=== PATIENT | female | born 2000 | race Caucasian/White ===

== ENCOUNTER → 2023-09-10 10:33 | Outpatient (REF) | payer BC, SELFPAY ==
[2023-09-19 22:22] LABS: Chlamydia trachomatis,ThinPrep Negative (Negative); Neisseria gonorrhoeae,ThinPrep Negative (Negative); Specimen Source Cervical
[2023-09-20 05:54] LABS: HPV, High Risk Detected; HPV, High Risk Source Cervical
[2023-09-21 08:21] LABS: HPV Genotype 16 Not Detected; HPV Genotype 18/45 by TMA Not Detected; HPV Genotype Source Cervical
== END ==
LOC: CPAP 10:33
PROVIDERS: ATTENDING PHYSICIAN Obstetrics & Gynecology
DX: Z01.419 Encounter for gynecological examination (general) (routine) without abnormal findings (principal); Z12.4 Encounter for screening for malignant neoplasm of cervix; Z11.3 Encounter for screening for infections with a predominantly sexual mode of transmission
CPT/HCPCS: 87491; 87591; 87624; 87625; G0123

== ENCOUNTER → 2023-09-17 09:57 | Outpatient (REF) | payer BC, SELFPAY ==
[2023-09-17 13:05] LABS: HDL Cholesterol 56 mg/dl; LDL Cholesterol, Calculated 29 mg/dl; Total Cholesterol 153 mg/dl (50-199); Triglyceride 343 mg/dl (10-149); Very Low Density Lipoprotein 68 mg/dl (0-30)
== END ==
LOC: HWLAB 09:57
PROVIDERS: ATTENDING PHYSICIAN Physician Assistant Medical
DX: E78.9 Disorder of lipoprotein metabolism, unspecified (principal)
CPT/HCPCS: 36415; 80061

== ENCOUNTER → 2024-02-10 09:56 | Outpatient (REF) | payer BC, SELFPAY ==
[2024-02-12 15:59] LABS: Quantiferon Mitogen minus NIL 9.96 IU/mL; Quantiferon NIL 0.04 IU/mL; Quantiferon TB Gold Plus Negative (Negative)
== END ==
LOC: HWLAB 09:56
PROVIDERS: ATTENDING PHYSICIAN Physician Assistant Medical
DX: Z11.1 Encounter for screening for respiratory tuberculosis (principal)
CPT/HCPCS: 36415; 86480

== ENCOUNTER → 2024-06-10 11:12 | Outpatient (REF) | payer BC, SELFPAY ==
[2024-06-10 13:12] LABS: Hepatitis B Surface Antibody Positive
[2024-06-12 08:55] LABS: Quantiferon Mitogen minus NIL 9.99 IU/mL; Quantiferon NIL 0.01 IU/mL; Quantiferon Plus TB1 minus NIL 0.03 IU/mL (<=0.34); Quantiferon Plus TB2 minus NIL 0.04 IU/mL (<=0.34); Quantiferon TB Gold Plus Negative (Negative)
== END ==
LOC: REG 11:12
PROVIDERS: ATTENDING PHYSICIAN Nurse Practitioner Family; FAMILY PHYSICIAN Physician Assistant Medical
DX: Z23 Encounter for immunization (principal)
CPT/HCPCS: 36415; 86480; 86706

== ENCOUNTER → 2024-08-25 08:42 | Outpatient (REF) | payer BC, SELFPAY ==
[2024-08-25 13:09] LABS: % Basophils 0.4 % (0-2); % Eosinophils 0.5 % (0-6); % Immature Granulocytes 0.4 % (0-0.5); % Monocytes 6.9 % (1.7-9.3); % Neutrophils 65.8 % (42.2-75.2); Absolute Monocytes 0.5 10^3/uL (0.1-0.6); Hematocrit 42.5 % (37.0-47.0); Hemoglobin 13.7 g/dL (12.0-16.0); Mean Corp Hgb Conc. 32.2 g/dL (33.0-37.0); Mean Corpuscular Hgb 30.6 pg (27.0-31.0); Mean Corpuscular Volume 94.9 fL (81.0-99.0); Mean Platelet Volume 10.2 fL (7.4-10.4); Nucleated Red Blood Cells % 0 %; Platelet Count 351 10^3/uL (130-400); Red Blood Cell Count 4.48 10^6/uL (4.20-5.40); Red Cell Dist. Width 11.9 % (11.5-14.5); White Blood Cell Count 7.5 10^3/uL (4.8-10.8)
[2024-08-25 13:16] LABS: ALT (SGPT) 13 U/L (0-35); AST (SGOT) 26 U/L (14-36); Albumin 4.6 g/dl (3.5-5.0); Alkaline Phosphatase 62 U/L (38-126); Blood Urea Nitrogen 11 mg/dl (7-17); Calcium 9.4 mg/dl (8.4-10.2); Carbon Dioxide 21 mmol/L (22-30); Chloride 103 mmol/L (98-107); Glucose 81 mg/dl (70-99); HDL Cholesterol 49 mg/dl; LDL Cholesterol, Calculated 35 mg/dl; Potassium 4.6 mmol/L (3.5-5.1); Sodium 136 mmol/L (135-145); Total Bilirubin 0.8 mg/dl (0.2-1.3); Total Cholesterol 128 mg/dl (50-199); Total Protein 6.9 g/dl (6.3-8.2); Triglyceride 221 mg/dl (10-149); Very Low Density Lipoprotein 44 mg/dl (0-30); eGFR > 60.00
[2024-08-25 13:41] LABS: TSH 1.38 uIU/ml (0.47-4.68)
== END ==
LOC: HWLAB 08:42
PROVIDERS: ATTENDING PHYSICIAN Physician Assistant Medical
DX: Z00.00 Encounter for general adult medical examination without abnormal findings (principal)
CPT/HCPCS: 36415; 80053; 80061; 84443; 85025

== ENCOUNTER → 2024-09-19 12:06 | Outpatient (REF) | payer BC, SELFPAY ==
[2024-09-25 04:41] LABS: HPV, High Risk Not Detected; HPV, High Risk Source Cervical
== END ==
LOC: CPAP 12:06
PROVIDERS: ATTENDING PHYSICIAN Student in an Organized Health Care Education/Training Program
DX: Z01.419 Encounter for gynecological examination (general) (routine) without abnormal findings (principal)
CPT/HCPCS: 87624

== ENCOUNTER → 2025-01-23 07:29 | Outpatient (REF) | payer OTHER, SELFPAY | LOC: RAD 07:29 | PROVIDERS: ATTENDING PHYSICIAN Physician Assistant | DX: M79.89 Other specified soft tissue disorders (principal) | CPT/HCPCS: 76536 ==

== ENCOUNTER → 2025-02-01 16:31 | Outpatient (REF) | payer OTHER, SELFPAY | LOC: RAD 16:31 | PROVIDERS: ATTENDING PHYSICIAN Physician Assistant | DX: R22.1 Localized swelling, mass and lump, neck (principal) | CPT/HCPCS: 70491; Q9967 ==

== ENCOUNTER 2025-04-03 06:22 | Day surgery (SDC) | payer OTHER, SELFPAY ==
[2025-03-28 09:01] LABS: Hematocrit 37.6 % (37.0-47.0); Hemoglobin 12.4 g/dL (12.0-16.0); Mean Corp Hgb Conc. 33.0 g/dL (33.0-37.0); Mean Corpuscular Volume 90.4 fL (81.0-99.0); Nucleated Red Blood Cells % 0 %; Platelet Count 263 10^3/uL (130-400); Red Cell Dist. Width 11.9 % (11.5-14.5)
[2025-03-28 14:01] VITALS: BMI 26.3
[2025-04-03] VITALS (8 sets, daily range): BP systolic 116–129; BP diastolic 74–84; BMI 26.3
[2025-04-03] MEDS: NORMOSOL-R/PLASMALYTE-A 1000 IV (09:46)
--- NOTE | 2025-04-03 10:05 | SUR.OPER ---
Report given to Devi at 1000. Will monitor patient.
--- NOTE | 2025-04-03 15:40 | OR.RPT ---
Addendum entered and electronically signed by Hernando Frances DO 04/04/25 08:18:
Modifier 80 - User Experience Manager Surgeon (Non-Teaching Facility) is being applied for this case.
Sukh Quinn MD, operated as an executive sales assistant surgeon during critical portions of this case. Dr. Quinn specifically actively assisted by way of retracting partoid gland tissue out of the microscopic operative field to facilitate safe identification
and dissection of the facial nerve, as well as using bipolar cautery to divide parotid gland tissue that was dissected and presented to him. This assistance was medically necessary as a Registered Nurse Insurance Loss Control Surveyor was not available for this case
and safe parotid gland retraction helps minimize bleeding, maintain a clear operative field and allow for safe preservation of the facial nerve which is intimately related to the parotid gland and parotid tumor.
Original Note:
Operative Report
Operative Report
Patient name: Nohemy Bull
Date of : 2000

Date of operation: 04/03/2025
Preoperative diagnosis: Right parotid neoplasm
Postoperative diagnosis: Same
Operation/procedures performed: Right superficial parotidectomy with facial nerve identification preservation
Surgeon: Hernando Frances DO
Anesthesia: General
Anesthesiologist: Abundio Gardiner
Surgical Indications: This is a 24-year-old woman who presented to the otolaryngology department with a chief complaint of a right parotid mass. The patient was taking pharmacologic weight loss therapy and was palpating around the angle of her jaw
when she felt a mass in the summer 2024. She saw her primary care physician who ordered a new CT soft tissue neck, breast that demonstrated a right parotid mass. She is largely asymptomatic however the mass does bother her. She underwent an
ultrasound of this which demonstrated characteristic features of a pleomorphic adenoma including post acoustic enhancement. These findings and suspicion for pleomorphic adenoma were corroborated with a fine-needle aspiration biopsy that resulted
suggestive of pleomorphic adenoma. At this point we have discussed the risks benefits and alternatives to observation with serial ultrasounds at least once yearly or more frequently if the patient noticed or develops changes versus surgical
removal. I discussed that given her young age and lifetime burden of surveillance with ultrasounds and repeated fine-needle aspiration biopsies for more, recommendation would be for surgical removal. I also discussed that there is a 1% chance of
malignant transformation and while this is low, after the first 10 years or so of diagnosis this risk increases. The patient after careful deliberation and ample time to ask questions and provided her informed written consent. We have specifically
discussed the risk of the operation and which included but were not limited to pain, infection, bleeding and postoperative hematoma, postoperative Elke syndrome, ear and neck numbness of the right upper extremity nerve injury, facial paresis or
paralysis from injury to the facial nerve and seroma. Patient accepted all these risks and agreed to proceed with the operation.
Details of Procedure: The patient was met in the preoperative holding area where informed written consent was reviewed and all questions were answered. The patient was then brought back to the operating room and transferred supine to the operating
room table. She was secured with 2 safety straps. The right arm was tucked. General anesthesia was induced without the use of a long-acting paralytic so as to not interfere with the use of commands monitoring. The patient was then intubated
orotracheally by the anesthesia team without difficulty. The tube was taped to the left and the table was rotated 1 degrees away from anesthesia. Nerve monitoring probes were placed in the orbicularis oculi and orbicularis kenneth muscles. Ground
electrodes were placed these were tested and integrity was confirmed. The head was rotated away to the left and a modified Balbir incision was marked in the region of interest on the right. The patient was prepped with ChloraPrep both over the
parotid operative field and also over the abdomen in the event that a abdominal dermal fat graft was needed for reconstruction. The patient was then draped in a sterile fashion.
A surgical timeout was performed confirming the necessary perioperative information. A #15 blade was then used to incise through the skin and dermis along nearly the full length of the modified Balbir incision marking. The greater regular nerve was
identified and a sepsis mass plane was not identified over the greater ocular nerve. A skin flap was then raised using a #15 blade and careful retraction. Once the flap was raised past the anterior margin of the tumor it was retracted with [place] hooks. Next the great auricular nerve was identified and skeletonized from its entry site to the earlobe to ensure that all passed the margin of the tumor. This was gently retracted posteriorly of the operative field. Next a contribution to
the external jugular vein was identified, skeletonized, clamped, ligated and tied with 2-0 silk suture. This was gently retracted posteriorly out of the operative field. Next the anterior border of the sternocleidomastoid muscle was identified and
divided from the posterior border of the parotid gland using Bovie monopolar cautery on a setting of 25. Once the level 2B fat above the posterior belly of the digastric was seen, the SCM was retracted posteriorly using an additional [place]
hooks. Then dissection continued more deeply until the posterior belly of the digastric was identified. Next attention was turned to the pretragal tunnel where an avascular plane between the posterior parotid fascia and the tragal the pretragal
perichondrium was identified.
The parotid gland was bluntly from the tragus. Tragal pointer was identified. Next slow and careful dissection ensued to divide the tissue between the digastric tunnel and the pretragal tunnel using a combination of blunt dissection and
bipolar cautery on a setting of 40. Before all of the intervening tissue between the pretragal and digastric tunnels was divided, dissection continued more deeply in the tragal tunnel to identify the depth of the main trunk of the facial nerve.
This was identified with direct visualization and confirmed with the nerve monitor probe on a setting on 0.8 mA. Once the main trunk of the facial nerve was confirmed, a superior border of the posterior belly of the digastric was gently bluntly
dissected from the inferior margin of the tumor and dissection was carried posteriorly towards the mastoid tip and dissection then that with the depth of the main trunk of the facial nerve. All of the lateral intervening tissue was then divided.
At this point dissection then carried along the main trunk of the facial nerve distally toward the pes. With the help of Allis forcep retraction and gentle tension, the upper division of the facial nerve was identified, dissected and from
the parotid gland. Bipolar cautery was used to divide the overlying parotid tissue with care to leave a safe margin of the parotid tissue around the tumor. Dissection continued until the upper division was free of the tumor. Next dissection
continued along the lower division of the facial nerve until it was seen to split into what was felt to be the marginal mandibular division in the cervical divisions. This occurred along the deep aspects of the tumor. Bipolar cautery was used to
divide and coagulate the parotid gland after the nerve monitor probe helped confirm absence of any branches in the intervening tissue to be divided. Along the deep and posterior margins of the tumor, additional stimulations with the nerve monitor
probe help to confirm the presence of a small branch of the facial nerve directed posteriorly and this was preserved.
Once the parotid tumor was visualized to be free from the facial nerve branches and the nerve stimulator probe confirmed no nerve branches in the remaining tissue to be divided, the parotid tumor was fully excised. This was sent for permanent
pathology. The main trunk and upper and lower divisions of the facial nerve were then tested with the nerve stimulator probe on a setting of 0.8 mA and all the stimulation locations yielded robust responses. The wound was irrigated and dried. A
Valsalva maneuver was performed confirming hemostasis. Next, the remaining parotid capsule and fascia was reapproximated posteriorly to the superficial layer of the deep cervical fascia. This helped eliminate remaining space. 3-0 Vicryl in a
simple interrupted inverted fashion was used to close the the deep layers. 4-0 Monocryl suture was used in a simple interrupted inverted fashion for a deep dermal layer closure. Dermabond surgical adhesive was used to close the epidermal layers.
All of the monitoring electrodes were removed. A Kerlix fluff gauze pressure dressing was placed and secured with a Kerlix gauze head wrap. Umbilical ties were used to help maintain its position.
The patient was then rotated back to the anesthesia team where she emerged safely from anesthesia and was extubated without difficulty. She was taken to the PACU in stable condition and her facial nerve function was visualized to be normal.
Dr. Quinn assisted with retraction during the critical portions of this case.
Complications: None immediately present
Blood loss: 10cc
Disposition: Stable to PACU followed by discharge to home
== END 2025-04-03 15:53 | disposition home or self-care (01) ==
LOC: SDS 06:22
PROVIDERS: ATTENDING PHYSICIAN Student in an Organized Health Care Education/Training Program; FAMILY PHYSICIAN Nurse Practitioner Family
DX: D11.0 Benign neoplasm of parotid gland (principal)
CPT/HCPCS: 42415; 36415; 85025; 88307